=== PATIENT | female | born 1960 | race Caucasian/White ===

== ENCOUNTER 2024-04-14 15:46 | Emergency (ER) | payer BC ==
[~2024-04-14] VITALS: Ht 167.6 cm; Wt 69.0 kg
[2024-04-14 15:51] VITALS: BP 125/72; PULSE 106; RESP 18; O2SAT 97
[2024-04-14] MEDS ORDERED: ipratropium/albuterol 3ml nebule NEB ONE (16:25)
[2024-04-14] MEDS ORDERED: ALBU8HFA INH (18:12)
[2024-04-14 19:03] VITALS: TEMP 98.6
== END 2024-04-14 19:05 | disposition home or self-care (01) ==
LOC: ER 15:47
DX: J44.1 Chronic obstructive pulmonary disease with (acute) exacerbation (principal); Z20.822 Contact with and (suspected) exposure to COVID-19; J06.9 Acute upper respiratory infection, unspecified; Z88.2 Allergy status to sulfonamides; Z87.891 Personal history of nicotine dependence
CPT/HCPCS: 36415; 71045; 87502; 87503; 87811; 99284